=== PATIENT | female | born 1945 | race Caucasian/White ===

== ENCOUNTER 2020-08-21 12:53 | Emergency (ER) | payer MEDICARE, SELFPAY ==
[2020-08-21 13:40] LABS: Apearance,Urine Clear (Clear); Bilirubin,Urine Negative (Negative); Blood, Urine 3+ (Negative); Color,Urine Yellow (Yellow); Glucose,Urine (UA) Negative (Negative); Ketones,Urine Negative (Negative); Protein,Urine Negative (Negative); Specific Gravity, Urine 1.015 (1.005-1.030); Urobilinogen,Urine 0.2 EU/dl (0.2)
[2020-08-21 13:41] LABS: UTC Leukocyte Esterase,Urine 1+ (Negative); UTC Nitrate,Urine Negative (Negative)
[2020-08-21 14:00] VITALS: BP 213/116; PULSE 83; RESP 14; TEMP 36.4; O2SAT 96; BMI 26.2
--- NOTE | 2020-08-21 14:14 | HMH.EDUTC ---
[facility] [place] Clinical Impression: UTI (urinary tract infection) Qualifiers: Urinary tract infection type: site unspecified Hematuria presence: with hematuria Qualified Code(s): N39.0 - Urinary tract infection, site not specified Disposition: Home, Self-Care Condition on Discharge: Good Instructions: Urinary Tract Infection Additional Instructions: Drink plenty of fluids. Take tylenol or ibuprofen for pain or fever. Take the medications as directed. Follow up with your regular doctor. GO TO THE ER FOR ANY WORSENING SYMPTOMS The pyridium will make your urine turn orange, this is an expected side effect. It will stain your clothes if it comes into contact with them. Prescriptions: Sulfamethoxazole/Trimethoprim [Bactrim DS tablet] 1 each PO BID 7 Days #14 tab Transmission Status: Received by [id number] Phenazopyridine HCl [Pyridium 200mg Tablet] 200 pow PO TID #6 tab Transmission Status: Received by [id number] Referrals: PCP,No [Primary Care Provider] - Time of Disposition: 14:17 Medical Decision Making - Medical Records Medical records reviewed: No: I reviewed the patient's medical records. - Kamar Inquiry Pt receiving controlled substance: No Vital Signs: 08/21/20 14:00 08/21/20 14:27 Temperature 97.5 F L 97.5 F L Temperature Source Oral Pulse Rate 83 Pulse Rate [Right Brachial] 83 Respiratory Rate 14 14 Blood Pressure 213/116 H Blood Pressure [Right Arm] 213/116 H Blood Pressure Mean [Right Arm] 148 Blood Pressure Source [Right Arm] Automatic Cuff Blood Pressure Position [Right Arm] Sitting 02 Sat by Pulse Oximetry 96 Oxygen Delivery Method Room Air - Lab Data Lab results reviewed: Yes: I reviewed the patient's lab results. Lab Results 08/21/20 13:35: Urine Color Yellow, Urine Appearance Clear, Urine pH 6.0, Ur Specific [place] 1.015, Urine Protein Negative, Urine Glucose (UA) Negative, Urine Ketones Negative, Urine Blood 3+, Urine Nitrate Negative, Urine Bilirubin Negative, Urine Urobilinogen 0.2, Ur Leukocyte Esterase 1+ A Orders (Tests/Meds): ORDERS Category Date Time Status Urine Culture Stat Micro 08/21/20 13:10 [place] [facility] [place] - General Stated complaint: Possible uti Time Seen by Provider: 08/21/20 14:10 Mode of Arrival: Ambulatory Source of Information: Patient Limitations: No Limitations Description of Symptoms (Recalled from Triage Doc. by RN): PATIENT C/O BURNING WITH URINATION THAT STARTED 08/20. SHE STATES TODAY HER ANANT AREA FEELS RAW AND SHE HAS SOME BLOOD HEENT Symptoms (Recalled from RN notes): No Resp Symptoms (Recalled from RN notes): No Skin Symptoms (Recalled from RN notes): No MS Symptoms (Recalled from RN notes): No Functional Status (Recalled from RN notes): WNL - History of Present Illness Provider Complaint: She reports that for the past 2 days she has had low back pain and dysuria. She has also noted some blood in her urine at times. - Related Data Home Medications Medication Instructions Recorded Confirmed Potassium Chloride [Pot Chlor 8 8 meq PO DAILY 08/21/20 08/21/20 mEq Cap] atenoloL [Atenolol 50mg Tab] 50 mg PO DAILY 08/21/20 08/21/20 atenoloL [Atenolol 50mg Tab] 75 mg PO HS 08/21/20 08/21/20 hydroCHLOROthiazide [HCTZ 25mg 25 mg PO DAILY 08/21/20 08/21/20 tab] lisinopriL [Lisinopril 10mg Tab] 20 mg PO DAILY 08/21/20 08/21/20 Previous Rx's Medication Instructions Recorded Phenazopyridine HCl [Pyridium 200 pow PO TID #6 tab 08/21/20 200mg Tablet] Sulfamethoxazole/Trimethoprim 1 each PO BID 7 Days #14 tab 08/21/20 [Bactrim DS tablet] Allergies Allergy/AdvReac Type Severity Reaction Status Date / Time aspirin Allergy Verified 08/21/20 14:11 Penicillins Allergy Verified 08/21/20 14:11 - Worker's Comp Is this a Worker's Comp case?: No [facility] History - Hepatitis A Screen Drug use history?: No High risk sexual behaviors?: No History
[2020-08-21 14:27] VITALS: BP 213/116; PULSE 83; RESP 14; TEMP 36.4; O2SAT 96
== END 2020-08-21 14:30 | disposition home or self-care (01) ==
PROVIDERS: Emergency Provider Nurse Practitioner Family
DX: N30.01 Acute cystitis with hematuria (principal); I10 Essential (primary) hypertension; Z88.0 Allergy status to penicillin
CPT/HCPCS: G0463; 81003; 87086; 87088; 87186; 99201